=== PATIENT | male | born 1955 | race Caucasian/White ===

== ENCOUNTER 2016-08-10 10:05 | Day surgery (SDC) | payer BC ==
[2016-08-06 16:17] VITALS: BMI 27.0
[~2016-08-10 10:05] MED LIST: LACTATED RINGERS 1,000 ML IV ONE; LIDOCAINE 1% 20 ML VIAL (10MG/ML) FOR IV START INTRADERMA PRN
[2016-08-10 11:27] VITALS: RESP 16; TEMP 97.1
[2016-08-10] MEDS ORDERED: PROPOFOL 10 MG/ML 20 ML VIAL IV ONE (11:53)
[2016-08-10] MEDS ORDERED: MIDAZOLAM 2 MG/2 ML VIAL ONE (11:53)
[2016-08-10] MEDS ORDERED: LIDOCAINE 1% INJ 10MG/ML (20 ML MDV) ONE (11:53)
[2016-08-10] MEDS ORDERED: fentaNYL (PF) 50 MCG/ML 2 ML AMP ONE (11:53)
--- NOTE | 2016-08-10 11:54 | P.GSHP ---
History of Present Illness H&P Date: 08/10/16 Chief Complaint: Screening colonoscopy Is a 60-year-old male referred from Dr. Jaelyn hunter. Patient presented today for screening colonoscopy. He denies significant GI complains. His last colonoscopy was approximately 9 years ago. Past Medical History Past Medical History: Hyperlipidemia, Hypertension History of Any Multi-Drug Resistant Organisms: None Reported Past Surgical History: No Surgical Hx Reported Additional Past Surgical History / Comment(s): COLONOSCOPY Past Anesthesia/Blood Transfusion Reactions: No Reported Reaction Past Psychological History: Anxiety, Depression Smoking Status: Former smoker Past Alcohol Use History: Occasional Additional Past Alcohol Use History / Comment(s): STARTED SMOKING AT AGE 56 QUIT AT AGE 57 SMOKED 1/2PPD Past Drug Use History: None Reported - Past Family History Mother Family Medical History: Cancer Additional Family Medical History / Comment(s): LEUKEMIA Medications and Allergies Home Medications Medication Instructions Recorded Confirmed Type Aspirin [Adult Low Dose Aspirin EC] 81 mg PO BID 09/05/15 08/10/16 History Atorvastatin [Lipitor] 20 mg PO DAILY 09/05/15 08/10/16 History QUEtiapine [SEROquel] 50 mg PO HS 08/06/16 08/10/16 History Sertraline [Zoloft] 50 mg PO DAILY 08/06/16 08/10/16 History Allergies Allergy/AdvReac Type Severity Reaction Status Date / Time No Known Allergies Allergy Verified 08/10/16 11:26 Surgical - Exam Vital Signs Temp Pulse Resp BP Pulse Ox 97.1 F L 66 16 137/87 97 08/10/16 11:17 08/10/16 11:17 08/10/16 11:17 08/10/16 11:17 08/10/16 11:17 - General well developed, no distress - Eyes PERRL - ENT normal pinna - Neck no masses - Respiratory normal expansion - Cardiovascular Rhythm: regular - Abdomen Abdomen: soft, non tender Assessment and Plan Plan: We'll perform screening colonoscopy
--- NOTE | 2016-08-10 12:08 | P.OP ---
Date of Procedure: 08/10/16 Preoperative Diagnosis: Screening colonoscopy Postoperative Diagnosis: Colon polyp sigmoid colon and left colon Diverticulosis Procedure(s) Performed: Colonoscopy Anesthesia: MAC Surgeon: Jonh Santos Pathology: none sent (Sigmoid colon and left colon polyp) Condition: stable Disposition: PACU Description of Procedure: The patient was placed on the endoscopy table in the lateral position. He received IV sedation. Digital rectal exam was performed which revealed no abnormalities. The prostate was symmetric without nodules. The flexible colonoscope was then placed patient anus and passed throughout the entire colon. The ileocecal valve sutures. The cecum, ascending and transverse colon appeared normal. In the descending colon there is some mild diverticular. There was a polyp seen this removed with a snare.. Scope summer back and sigmoid colon a few scattered diverticula were seen. There was another polyp seen this removed the forcep. Scope was then brought back the rectum this appeared normal. Scope was withdrawn for patient.
[2016-08-10 12:42] VITALS: PULSE 64
[2016-08-10 13:19] VITALS: BP 156/91
== END 2016-08-10 13:36 | disposition home or self-care (01) ==
LOC: ORWHC2ENDO 10:05
PROVIDERS: ATTEND Surgery
DX: Z12.11 Encounter for screening for malignant neoplasm of colon (principal); D12.5 Benign neoplasm of sigmoid colon; K63.5 Polyp of colon; K57.30 Diverticulosis of large intestine without perforation or abscess without bleeding; E78.5 Hyperlipidemia, unspecified; I10 Essential (primary) hypertension; F41.9 Anxiety disorder, unspecified; F32.9 Major depressive disorder, single episode, unspecified; Z79.82 Long term (current) use of aspirin; Z79.899 Other long term (current) drug therapy; Z87.891 Personal history of nicotine dependence
CPT/HCPCS: 88305; 45380; 45385; J2250; J2001; J3010; J2704; 99153

== ENCOUNTER 2017-02-11 10:04 | Emergency (ER) | payer BC, OTHER ==
--- NOTE | 2017-02-11 12:11 | ED ---
Psych HPI - General Chief Complaint: Psychiatric Symptoms Stated Complaint: alter mental status Time Seen by Provider: 02/11/17 10:16 Source: patient Mode of arrival: ambulatory - History of Present Illness Initial Comments: This 61-year-old white male presents for evaluation of psychiatric status. He apparently was at work today and had an altercation with his superiors. 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 He apparently asked for assistance and then had some disagreements with his [employer] supervisor. They brought him in for further psychiatric evaluation. He apparently was not answering their questions. He apparently was staring off. He relates frustration with the supervisors as they did not give him the assistance he felt he needed. He states that he has been at this job for 19 years without any problems. He does have a history of previous psychiatric problems with previous hospitalization this past year. At that time, he was having some problems with anxiety depression and possible psychosis. He has been on medications and been quite stable since. It sounds as though he had appropriate follow up afterwards and now is only being treated through his primary care physician. He denies any current anxiety, depression, or suicidal ideations. He denies any psychosis or hallucinations or delusions. He is quite appropriate with examination. He denies any medical complaints. He states that he did have a couple of drinks this past evening but does not have a drinking problem. He denies any drug use. No other identifiable complaints or modifying factors. - Related Data Home Medications Medication Instructions Recorded Confirmed Aspirin [Adult Low Dose Aspirin EC] 81 mg PO BID 09/05/15 02/11/17 Atorvastatin [Lipitor] 20 mg PO DAILY 09/05/15 02/11/17 QUEtiapine [SEROquel] 50 mg PO HS 08/06/16 02/11/17 Sertraline [Zoloft] 50 mg PO DAILY 08/06/16 02/11/17 Vitamin B Complex 1 cap PO DAILY 02/11/17 02/11/17 Allergies Allergy/AdvReac Type Severity Reaction Status Date / Time No Known Allergies Allergy Verified 02/11/17 11:03 Review of Systems ROS Statement: Those systems with pertinent positive or pertinent negative responses have been documented in the HPI. ROS Other: All systems not noted in ROS Statement are negative. Past Medical History Past Medical History: Hyperlipidemia, Hypertension History of Any Multi-Drug Resistant Organisms: None Reported Past Surgical History: No Surgical Hx Reported Additional Past Surgical History / Comment(s): COLONOSCOPY Past Anesthesia/Blood Transfusion Reactions: No Reported Reaction Past Psychological History: Anxiety, Depression Smoking Status: Former smoker Past Alcohol Use History: Occasional Past Drug Use History: None Reported - Past Family History Mother Family Medical History: Cancer Additional Family Medical History / Comment(s): LEUKEMIA General Exam - General Exam Comments Initial Comments: GENERAL: The patient is well nourished and well hydrated. VITAL SIGNS: Heart rate, blood pressure, respiratory rate reviewed as recorded in nurse's notes. EYES: Pupils are round and reactive. Extraocular movements are intact. No conjunctival / lid redness or swelling. ENT: No external evidence of injury, swelling, or ecchymosis. Airway is patent. Throat is clear. NECK: Nontender. No swelling or evidence of injury. No subcutaneous emphysema. Trachea is midline. No thyroid mass. HEART: Regular rate and rhythm. Good peripheral pulses. LUNGS/CHEST: Breath sounds clear and equal bilaterally. No rales, rhonchi, or wheezes. No ecchymosis, subcutaneous emphysema, or tenderness. ABDOMEN: Abdomen soft without tenderness. No palpable masses or organomegaly. No peritoneal signs. No abdominal wall swelling or ecchymosis. EXTREMITIES: No extremity tenderness. Normal muscle tone and function. No thoracolumbar tenderness. NEUROLOGIC: Sensation is grossly intact. Cranial nerve exam reveals face is symmetrical, tongue is midline, speech is clear. SKIN: No abrasions or ecchymosis is noted. No induration or masses noted. PSYCHIATRIC: Alert and oriented. Appropriate behavior and judgment. Limitations: no limitations Course Vital Signs 02/11/17 02/11/17 10:06 11:20 Temperature 98.0 F Pulse Rate 95 Respiratory 16 Rate Blood Pressure 163/94 155/97 O2 Sat by Pulse 98 Oximetry Medical Decision Making - Medical Decision Making The patient was seen and examined. All diagnostics were reviewed. The drug screen was positive for tricyclic antidepressants. The alcohol level was very minimally elevated. The psychiatric nurse evaluated the patient and does discussed the case with me. She feels as though he is stable for discharge. They did provide him some resources in case he has any further problems. It is not felt as though he needs any further psychiatric treatment at this time. I do agree with this recommendation and feels though he is stable for discharge. - Lab Data Lab Results 02/11/17 Range/Units 11:02 Urine Opiates Screen Not Detected (NotDetected) Ur Oxycodone Screen Not Detected (NotDetected) Urine Methadone Screen Not Detected (NotDetected) Ur Propoxyphene Screen Not Detected (NotDetected) Ur Barbiturates Screen Not Detected (NotDetected) U Tricyclic Antidepress Detected H (NotDetected) Ur Phencyclidine Scrn Not Detected (NotDetected) Ur Amphetamines Screen Not Detected (NotDetected) U Methamphetamines Scrn Not Detected (NotDetected) U Benzodiazepines Scrn Not Detected (NotDetected) Urine Cocaine Screen Not Detected (NotDetected) U Marijuana (THC) Screen Not Detected (NotDetected) Disposition Clinical Impression: Agitation Disposition: HOME SELF-CARE Condition: Good Instructions: Normal Exam (ED) Referrals: Jaelyn Weiss DO [Primary Care Provider] - 1-2 days Time of Disposition: 12:12
[2017-02-11 12:32] VITALS: BP 165/99; PULSE 70; RESP 17; TEMP 97.6
== END 2017-02-11 12:31 | disposition home or self-care (01) ==
LOC: EC 10:04
DX: R45.1 Restlessness and agitation (principal); E78.5 Hyperlipidemia, unspecified; F32.9 Major depressive disorder, single episode, unspecified; F41.9 Anxiety disorder, unspecified; Z87.891 Personal history of nicotine dependence; Z79.82 Long term (current) use of aspirin; Z79.899 Other long term (current) drug therapy
CPT/HCPCS: 80306; 82075; 99285

== ENCOUNTER 2017-09-30 09:05 | Day surgery (SDC) | payer OTHER ==
[2017-09-29 11:06] VITALS: BMI 26.6
[~2017-09-30 09:05] MED LIST changes: -LACTATED RINGERS 1,000 ML IV ONE; +LACTATED RINGERS 1,000 ML IV SCH
[2017-09-30 09:33] VITALS: RESP 16; TEMP 97.3
[2017-09-30] MEDS ORDERED: PROPOFOL 10 MG/ML 20 ML VIAL IV ONE (10:14)
[2017-09-30] MEDS ORDERED: LIDOCAINE 1% INJ 10MG/ML (20 ML MDV) ONE (10:14)
--- NOTE | 2017-09-30 10:19 | P.GSHP ---
History of Present Illness H&P Date: 09/30/17 Chief Complaint: History of colon polyps This is a 61-year-old male referred from Dr. Jaelyn hunter. Patient has history of colon polyps. He presents today for colonoscopy. Past Medical History Past Medical History: Hyperlipidemia Additional Past Medical History / Comment(s): HX COLON POLYPS. History of Any Multi-Drug Resistant Organisms: None Reported Past Surgical History: No Surgical Hx Reported Additional Past Surgical History / Comment(s): COLONOSCOPY 2016. Past Anesthesia/Blood Transfusion Reactions: No Reported Reaction Smoking Status: Former smoker - Past Family History Mother Family Medical History: Cancer Additional Family Medical History / Comment(s): EARLY STAGE LEUKEMIA Medications and Allergies Home Medications Medication Instructions Recorded Confirmed Type Aspirin [Adult Low Dose Aspirin EC] 81 mg PO DAILY 09/05/15 09/30/17 History Atorvastatin [Lipitor] 20 mg PO DAILY 09/05/15 09/30/17 History QUEtiapine [SEROquel] 50 mg PO HS 08/06/16 09/30/17 History Sertraline [Zoloft] 50 mg PO DAILY 08/06/16 09/30/17 History Vitamin B Complex 1 cap PO DAILY 02/11/17 09/30/17 History Allergies Allergy/AdvReac Type Severity Reaction Status Date / Time No Known Allergies Allergy Verified 09/29/17 10:52 Surgical - Exam Vital Signs Temp Pulse Resp BP Pulse Ox 97.3 F L 79 16 148/88 98 09/30/17 09:29 09/30/17 09:29 09/30/17 09:29 09/30/17 09:29 09/30/17 09:29 - General well developed, no distress - Eyes PERRL - ENT normal pinna - Neck no masses - Respiratory normal expansion - Cardiovascular Rhythm: regular - Abdomen Abdomen: soft, non tender Assessment and Plan Assessment: History of colon polyps. We'll perform colonoscopy.
--- NOTE | 2017-09-30 10:32 | P.OP ---
Date of Procedure: 09/30/17 Preoperative Diagnosis: History of colon polyp Postoperative Diagnosis: Normal colonoscopy Procedure(s) Performed: Colonoscopy Anesthesia: MAC Surgeon: Jonh Santos Pathology: none sent Condition: stable Disposition: PACU Description of Procedure: PROCEDURE: The patient was placed on the endoscopy table in the lateral position. Digital rectal examination was performed which revealed no abnormalities. The prostate was symmetrical without nodules. Flexible colonoscope was then placed in the patient's anus and passed throughout the entire colon. The ileocecal valve was visualized. The cecum, ascending, transverse, descending and sigmoid colon were normal. The rectum was normal as well. There were no masses, polyps or diverticula noted in the entire colon. SUMMARY OF FINDINGS: Normal colonoscopy.
[2017-09-30 11:14] VITALS: BP 149/85; PULSE 80
== END 2017-09-30 11:17 | disposition home or self-care (01) ==
LOC: ORWHC2ENDO 09:05
PROVIDERS: ATTEND Surgery
DX: Z12.11 Encounter for screening for malignant neoplasm of colon (principal); E78.5 Hyperlipidemia, unspecified; Z86.010 Personal history of colon polyps; Z87.891 Personal history of nicotine dependence; Z79.82 Long term (current) use of aspirin; Z79.899 Other long term (current) drug therapy
CPT/HCPCS: 45378; J2001; J2704

== ENCOUNTER 2020-11-29 08:12 | Day surgery (SDC) | payer OTHER ==
[2020-11-26 09:02] VITALS: BMI 24.0
[~2020-11-29 08:12] MED LIST changes: -LIDOCAINE 1% 20 ML VIAL (10MG/ML) FOR IV START INTRADERMA PRN
[2020-11-29] MEDS ORDERED: LIDOCAINE 1% (10MG/ML) FOR IV START INTRADERMA ONE (08:50)
[2020-11-29 08:57] VITALS: TEMP 97.8
[2020-11-29] MEDS ORDERED: PROPOFOL 10 MG/ML 20 ML VIAL IV ONE (09:40)
--- NOTE | 2020-11-29 09:44 | P.GSHP ---
History of Present Illness H&P Date: 11/29/20 Chief Complaint: History of colon polyps This is a 65-year-old male who presents today for colonoscopy. Patient denies any significant GI complaints. He has a previous history of colon polyps Past Medical History Past Medical History: Hyperlipidemia, Thyroid Disorder Additional Past Medical History / Comment(s): HX COLON POLYPS. History of Any Multi-Drug Resistant Organisms: None Reported Past Surgical History: No Surgical Hx Reported Additional Past Surgical History / Comment(s): COLONOSCOPY 2017. Past Anesthesia/Blood Transfusion Reactions: No Reported Reaction Past Psychological History: Anxiety, Depression Additional Psychological History / Comment(s): TAKES seroquel states for sleep Smoking Status: Former smoker Past Alcohol Use History: None Reported Additional Past Alcohol Use History / Comment(s): STARTED SMOKING AT AGE 56 QUIT AT AGE 57 SMOKED 1/2PPD Past Drug Use History: None Reported - Past Family History Mother Family Medical History: Cancer Additional Family Medical History / Comment(s): EARLY STAGE LEUKEMIA Medications and Allergies Home Medications Medication Instructions Recorded Confirmed Type Aspirin [Adult Low Dose Aspirin EC] 81 mg PO DAILY 09/05/15 11/26/20 History Atorvastatin [Lipitor] 20 mg PO DAILY 09/05/15 11/26/20 History Levothyroxine Sodium [Synthroid] 25 mcg PO DAILY 11/26/20 11/26/20 History QUEtiapine FUMARATE [SEROquel] 25 mg PO HS 11/26/20 11/26/20 History Allergies Allergy/AdvReac Type Severity Reaction Status Date / Time No Known Allergies Allergy Verified 11/26/20 08:53 Surgical - Exam Vital Signs Temp Pulse Resp BP Pulse Ox 97.8 F 86 20 116/81 98 11/29/20 08:55 11/29/20 08:55 11/29/20 08:55 11/29/20 08:55 11/29/20 08:55 - General well developed, well nourished, no distress - Eyes PERRL - ENT normal pinna - Neck no masses - Respiratory normal expansion - Cardiovascular Rhythm: regular - Abdomen Abdomen: soft, non tender Assessment and Plan Assessment: History of colon polyps. We'll perform colonoscopy.
--- NOTE | 2020-11-29 10:00 | P.OP ---
Date of Procedure: 11/29/20 Preoperative Diagnosis: History of colon polyps Postoperative Diagnosis: Diverticulosis Procedure(s) Performed: Colonoscopy Anesthesia: MAC Surgeon: Jonh Santos Pathology: none sent Condition: stable Disposition: PACU Description of Procedure: The patient's placed on the endoscopy table in the lateral position. He received IV sedation. Digital rectal exam was performed which revealed no abnormalities. The prostate was symmetric without nodules. The flexible colonoscope was then placed patient anus and passed throughout the entire colon. The ileocecal valve was visualized. The cecum, ascending and transverse colon appeared normal. In the descending and sigmoid colon is mild diverticular changes. Scope was then brought back into the rectum and this appeared normal. Scope was withdrawn for patient.
[2020-11-29 10:04] VITALS: RESP 16
[2020-11-29 10:36] VITALS: BP 130/76; PULSE 82
== END 2020-11-29 11:00 | disposition home or self-care (01) ==
LOC: ORWHC2ENDO 08:12
PROVIDERS: ATTEND Surgery
DX: Z12.11 Encounter for screening for malignant neoplasm of colon (principal); K57.30 Diverticulosis of large intestine without perforation or abscess without bleeding; E78.5 Hyperlipidemia, unspecified; E07.9 Disorder of thyroid, unspecified; Z86.010 Personal history of colon polyps; Z98.890 Other specified postprocedural states; F41.9 Anxiety disorder, unspecified; F32.9 Major depressive disorder, single episode, unspecified; Z87.891 Personal history of nicotine dependence; Z80.6 Family history of leukemia; Z79.82 Long term (current) use of aspirin; Z79.890 Hormone replacement therapy; Z79.899 Other long term (current) drug therapy
CPT/HCPCS: J2704; G0105; 45378